=== PATIENT | male | born 1975 | race Caucasian/White ===

== ENCOUNTER 2021-12-10 06:09 | Day surgery (SDC) | payer OTHER ==
[2021-12-03 14:05] VITALS: BMI 34.1
[2021-12-10] MEDS ORDERED: PROPOFOL 20 ML ONE ×5 (08:05→09:01)
[2021-12-10] MEDS ORDERED: MIDAZOLAM HCL 2 MG/2 ML SINGLE DOSE VIAL ONE ×2 (08:05→08:27)
[2021-12-10] MEDS ORDERED: ROPIVACAINE HCL/PF 100 MG/20 ML VIAL ONE (08:27)
[2021-12-10] MEDS ORDERED: LIDOCAINE 1% P/F 10 MG/ML VIAL ONE (08:27)
[2021-12-10] MEDS ORDERED: ONDANSETRON 4 MG/2 ML VIAL IVPUSH PRN (10:27)
[2021-12-10] MEDS ORDERED: LACTATED RINGERS SOLUTION 1,000 ML IV SCH (10:30)
[2021-12-10] MEDS ORDERED: HYDROmorphone HCL/PF 1 MG/ML VIAL ONE (10:42)
[2021-12-10] MEDS ORDERED: ACETAMINOPHEN 1000 MG/100 ML BAG IVPB ONE (10:55)
[2021-12-10] MEDS ORDERED: oxyCODONE HCL 5 MG TABLET PO PRN ×2 (11:01)
[2021-12-10] MEDS ORDERED: oxyCODONE HCL 5 MG TABLET ONE (11:58)
[2021-12-10 12:01] VITALS: PULSE 78; TEMP 97
[2021-12-10 12:33] VITALS: BP 142/90
== END 2021-12-10 12:55 | disposition home or self-care (01) ==
LOC: FASU 06:09
PROVIDERS: ATTEND Orthopaedic Surgery Sports Medicine
PROC: 0RQK4ZZ Repair Left Shoulder Joint, Percutaneous Endoscopic Approach (ICD-10-PCS; 2021-12-10)
PROC: 0RBK4ZZ Excision of Left Shoulder Joint, Percutaneous Endoscopic Approach (ICD-10-PCS; 2021-12-10)
PROC: 0LQ24ZZ Repair Left Shoulder Tendon, Percutaneous Endoscopic Approach (ICD-10-PCS; principal; 2021-12-10 09:17)
PROC: 0LS44ZZ Reposition Left Upper Arm Tendon, Percutaneous Endoscopic Approach (ICD-10-PCS; 2021-12-10 09:17)
DX: M75.102 Unspecified rotator cuff tear or rupture of left shoulder, not specified as traumatic (principal); M24.112 Other articular cartilage disorders, left shoulder; M75.22 Bicipital tendinitis, left shoulder
CPT/HCPCS: 94760

== ENCOUNTER 2022-09-30 06:11 | Day surgery (SDC) | payer OTHER ==
[2022-09-21 14:33] VITALS: BMI 33.7
[2022-09-30 06:41] VITALS: BP 172/118; PULSE 82; RESP 20; TEMP 97.8
== END 2022-09-30 07:40 | disposition home or self-care (01) ==
LOC: FASU 06:11
PROVIDERS: ATTEND Orthopaedic Surgery Sports Medicine
PROC: 7W07X9Z Osteopathic Treatment of Upper Extremities using Other Method (ICD-10-PCS; principal; 2022-09-30)
DX: Z53.09 Procedure and treatment not carried out because of other contraindication (principal)

== ENCOUNTER 2022-10-21 07:59 | Day surgery (SDC) | payer OTHER ==
[2022-10-15 13:35] VITALS: BMI 34.1
[2022-10-21] MEDS ORDERED: PROPOFOL 20 ML ONE (09:50)
[2022-10-21] MEDS ORDERED: DEXAMETHASONE SOD PHOSPHATE/PF 10 MG/ML SDV ONE (09:52)
[2022-10-21] MEDS ORDERED: ROPIVACAINE HCL 0.5% 30ML VIAL ONE (09:52)
[2022-10-21] MEDS ORDERED: MIDAZOLAM HCL 2 MG/2 ML SINGLE DOSE VIAL ONE ×2 (09:52→11:55)
[2022-10-21] MEDS ORDERED: EPINEPHrine 1:1,000 1,000 MCG/ML ML ONE (11:02)
[2022-10-21] MEDS ORDERED: PROPOFOL 40 ML ONE (12:08)
[2022-10-21] MEDS ORDERED: TRANEXAMIC ACID 1000 MG/10 ML VIAL ONE (12:16)
[2022-10-21] MEDS ORDERED: ceFAZolin SODIUM 1 GM VIAL ONE (12:16)
[2022-10-21] MEDS ORDERED: ONDANSETRON 4 MG/2 ML VIAL ONE (12:17)
[2022-10-21] MEDS ORDERED: DEXAMETHASONE SOD PHOSPHATE 4 MG/1 ML VIAL ONE (12:17)
[2022-10-21] MEDS ORDERED: METOPROLOL TARTRATE 5 MG/5 ML VIAL ONE (12:30)
[2022-10-21] MEDS ORDERED: oxyCODONE HCL 5 MG TABLET PO PRN (13:09)
[2022-10-21] MEDS ORDERED: CYCLOBENZAPRINE HCL 10 MG TABLET (FP) PO ONE (13:09)
[2022-10-21] MEDS ORDERED: ONDANSETRON 4 MG/2 ML VIAL IVPUSH PRN (13:09)
[2022-10-21] MEDS ORDERED: LACTATED RINGERS SOLUTION 1,000 ML IV SCH (13:15)
[2022-10-21 15:00] VITALS: BP 143/89; PULSE 83; RESP 18; TEMP 98.5
[2022-10-22] MEDS ORDERED: NEBIVOLOL 10 MG TABLET (FP) PO SCH (10:00)
== END 2022-10-21 14:50 | disposition home or self-care (01) ==
LOC: FASU 07:59
PROVIDERS: ATTEND Orthopaedic Surgery Sports Medicine
PROC: 0RQK4ZZ Repair Left Shoulder Joint, Percutaneous Endoscopic Approach (ICD-10-PCS; 2022-10-21)
PROC: 0RBK4ZZ Excision of Left Shoulder Joint, Percutaneous Endoscopic Approach (ICD-10-PCS; principal; 2022-10-21 12:25)
DX: G89.18 Other acute postprocedural pain (principal); M65.812 Other synovitis and tenosynovitis, left shoulder
CPT/HCPCS: 94760